=== PATIENT | female | born 1965 | race Two or more races ===

== ENCOUNTER 2020-07-14 06:05 | Day surgery (SDC) | payer OTHER ==
[~2020-07-14 06:05] MED LIST: SYNTHROID50 MCG PO; VITAMIN D 3 PO
[2020-07-14] MEDS ORDERED: PERCOCET 5-3251 EACH PO (08:17)
== END 2020-07-14 10:35 | disposition home or self-care (01) ==
LOC: CIR.AMB 06:05
PROVIDERS: ATTEND Obstetrics & Gynecology Gynecology
DX: D06.7 Carcinoma in situ of other parts of cervix (principal); Z20.828 Contact with and (suspected) exposure to other viral communicable diseases